=== PATIENT | female | born 1970 | race Caucasian/White ===

== ENCOUNTER 2017-10-04 09:08 | Observation (INO) | payer SELFPAY ==
[~2017-10-04] VITALS: Ht 160 cm; Wt 46.0 kg
[~2017-10-04 09:08] MED LIST: ALPR1CON PO; PROM25SU8 PO; PROT40TA PO
[2017-10-04 09:09] VITALS: BP 168/77; PULSE 70; RESP 16; TEMP 98.7; O2SAT 99
[2017-10-04 10:21] LABS: AUTOMATED NEUTROPHIL # 11.8 TH/MM3 (1.8-7.7); BASOPHIL # 0.1 TH/MM3 (0-0.2); BASOPHIL % 0.4 % (0.0-2.0); EOSINOPHIL # 0.1 TH/MM3 (0-0.4); EOSINOPHIL % 0.6 % (0.0-4.0); HEMATOCRIT 41.2 % (35.0-46.0); HEMO FLAGS DIFF FINAL; LYMPH % 11.7 % (9.0-44.0); LYMPHOCYTE # 1.7 TH/MM3 (1.0-4.8); MEAN CORPUSCULAR HEMOGLOBIN 32.1 PG (27.0-34.0); MEAN CORPUSCULAR HGB CONC 33.1 % (32.0-36.0); MONO % 4.6 % (0.0-8.0); NEUT % 82.7 % (16.0-70.0); PLATELET COUNT 276 TH/MM3 (150-450); RED BLOOD COUNT 4.24 MIL/MM3 (4.00-5.30); RED CELL DISTRIBUTION WIDTH 13.7 % (11.6-17.2); WHITE BLOOD COUNT 14.3 TH/MM3 (4.0-11.0)
[2017-10-04 10:45] VITALS: BP 98/64; PULSE 53; RESP 17; O2SAT 99
--- NOTE | 2017-10-04 10:52 | RADRPT ---
EXAM DATE/TIME: 10/04/2017 10:02 [facility] COMPARISON: No previous studies available for comparison. INDICATIONS : Chest pain. MEDICAL HISTORY : None. SURGICAL HISTORY : None. ENCOUNTER: Initial ACUITY: 1 day PAIN SCORE: 2/10 LOCATION: Bilateral chest FINDINGS: A single view of the chest demonstrates the lungs to be symmetrically aerated without evidence of mas s, infiltrate or effusion. The cardiomediastinal contours are unremarkable. Osseous structures are intact. CONCLUSION: No acute disease. Vikas Whitfield MD on October 04, 2017 at 10:49 Board Certified Radiologist. This report was verified electronically.
[2017-10-04 10:53] LABS: ANION GAP 8 MEQ/L (5-15); BICARBONATE 24.1 MEQ/L (21.0-32.0); CHLORIDE 107 MEQ/L (98-107); CREATINE KINASE 104 U/L (26-192); GLOMERULAR FILTRATION RATE 82 ML/MIN (>89); SODIUM (NA) 139 MEQ/L (136-145)
[2017-10-04 10:54] LABS: BLOOD UREA NITROGEN 10 MG/DL (7-18)
[2017-10-04 11:06] LABS: CKMB 1.6 NG/ML (0.5-3.6)
--- NOTE | 2017-10-04 11:23 | PD ---
HPI Chief Complaint: Cardiac Complaint Time Seen by Provider: 10:12 Travel History International Travel<30 days: No Contact w/Intl Traveler<30days: No Traveled to known affect area: No History of Present Illness HPI This is a 47-year-old female who presents to the emergency department with chest discomfort that started earlier this morning about 3 hours ago described as stabbing pain in the left side of her chest radiating to the left arm associated with some shortness of breath and nausea. She says she was driving in her car when the pain recurred and she started to feel confused and felt like her speech with heavy and slurred. This lasted for several minutes and then subsided. She's had chest pains before but never this bad. She has never had a stress test. She's been told she has hyperlipidemia by her doctor but she doesn't take any medication. Her father had multiple heart attacks and they think that he had his first heart attack when he was young. Her sister who was in the room says that she's had 2 "silent heart attacks" for which she did not receive stents. PFSH Past Medical History Depression: Yes High Cholesterol: Yes Diminished Hearing: No Influenza Vaccination: No ?: Not Past Surgical History Section: Yes Hysterectomy: Yes (PARTIAL) Other Surgery: Yes (LAPAROSCOPY) Social History Alcohol Use: Yes (OCCASSIONALLY) Tobacco Use: No (QUIT 3 YEARS AGO) Substance Use: Yes (MARIJUANA DAILY) Allergies-Medications (Allergen,Severity, Reaction): Coded Allergies: acetaminophen (Unverified Allergy, Severe, Nausea/Vomiting, 06/14/17) oxycodone (Unverified Allergy, Severe, Nausea/Vomiting, 06/14/17) penicillin G (Unverified Allergy, Severe, 06/14/17) propoxyphene (Unverified Allergy, Severe, Nausea/Vomiting, 06/14/17) Reported Meds & Prescriptions Reported Meds & Active Scripts Active Reported Prozac (Fluoxetine HCl) 10 Mg Cap 10 Mg PO DAILY Alprazolam 1 Mg Tab 1 Mg PO TID PRN Review of Systems Except as stated in HPI: all other systems reviewed are Neg Physical Exam Narrative GENERAL:Well appearing, no acute distress SKIN: Focused skin assessment warm and dry. HEAD: Atraumatic. Normocephalic. EYES: Pupils equal and round. No injection or drainage. ENT: Moist mucous membranes NECK: Trachea midline. CARDIOVASCULAR: Regular rate and rhythm. No murmur appreciated. RESPIRATORY: Clear to auscultation. Breath sounds equal bilaterally. GASTROINTESTINAL: Abdomen soft, non-tender, nondistended. MUSCULOSKELETAL: No obvious deformities. NEUROLOGICAL: Awake and alert. No obvious cranial nerve deficits. No upper or lower extremity drift. No ataxia. PSYCHIATRIC: Anxious appearing. Data Data Last Documented VS Vital Signs Date Time Temp Pulse Resp B/P (MAP) Pulse Ox O2 Delivery O2 Flow Rate FiO2 10/04/17 10:45 53 17 98/64 (75) 99 Room Air 10/04/17 09:09 98.7 Orders Orders Electrocardiogram (10/04/17 ) Complete Blood Count With Diff (10/04/17 09:54) Basic Metabolic Panel (Bmp) (10/04/17 09:54) Ckmb (Isoenzyme) Profile (10/04/17 09:54) Troponin I (10/04/17 09:54) Chest, Single Ap (10/04/17 09:54) Iv Access Insert/Monitor (10/04/17 09:54) Ecg Monitoring (10/04/17 09:54) Oxygen Administration (10/04/17 09:54) Oximetry (10/04/17 09:54) Ct Brain W/O Iv Contrast(Rout) (10/04/17 ) CKMB (10/04/17 10:02) CKMB% (10/04/17 10:02) Admit Order (Ed Use Only) (10/04/17 12:32) Labs Laboratory Tests Test 10/04/17 10:02 White Blood Count 14.3 TH/MM3 Red Blood Count 4.24 MIL/MM3 Hemoglobin 13.6 GM/DL Hematocrit 41.2 % Mean Corpuscular Volume 97.0 FL Mean Corpuscular Hemoglobin 32.1 PG Mean Corpuscular Hemoglobin Concent 33.1 % Red Cell Distribution Width 13.7 % Platelet Count 276 TH/MM3 Mean Platelet Volume 8.6 FL Neutrophils (%) (Auto) 82.7 % Lymphocytes (%) (Auto) 11.7 % Monocytes (%) (Auto) 4.6 % Eosinophils (%) (Auto) 0.6 % Basophils (%) (Auto) 0.4 % Neutrophils # (Auto) 11.8 TH/MM3 Lymphocytes # (Auto) 1.7 TH/MM3 Monocytes # (Auto) 0.7 TH/MM3 Eosinophils # (Auto) 0.1 TH/MM3 Basophils # (Auto) 0.1 TH/MM3 CBC Comment DIFF FINAL Differential Comment Blood Urea Nitrogen 10 MG/DL Creatinine 0.75 MG/DL Random Glucose 103 MG/DL Calcium Level 8.9 MG/DL Sodium Level 139 MEQ/L Potassium Level 4.0 MEQ/L Chloride Level 107 MEQ/L Carbon Dioxide Level 24.1 MEQ/L Anion Gap 8 MEQ/L Estimat Glomerular Filtration Rate 82 ML/MIN Total Creatine Kinase 104 U/L Creatine Kinase MB 1.6 NG/ML Troponin I LESS THAN 0.02 NG/ML MDM Medical Decision Making Medical Screen Exam Complete: Yes Emergency Medical Condition: Yes Interpretation(s) Afebrile, no tachycardia, hypertensive Leukocytosis Electrolytes are reassuring Troponin is normal Chest x-rays reassuring CT head: No intracranial hemorrhage Differential Diagnosis Acute coronary syndrome, costochondritis, pulmonary embolism, anxiety, TIA, stroke, aortic dissection Narrative Course This is a 47-year-old female who presents to the emergency department with chest discomfort that is intermittent and started this morning associated with some numbness in her left arm and some speech difficulty that lasted for several minutes and then subsided. She is placed in a monitor and an IV was established. EKG is nonischemic. Labs are obtained which are reassuring and CT of the head is unremarkable. I very low suspicion that this is a TIA or stroke because it wouldn't fit with her chest pain. Her risk profile is low and she can likely follow-up from a neurologic perspective as an outpatient. She doesn't have any risk factors for aortic dissection. If anything I think we need to rule out acute coronary syndrome in this patient given her family history, although my suspicion is that her presentation is related to anxiety. Patient will be placed in observation and serial cardiac enzymes will be obtained as well as risk stratification. Physician Communication Physician Communication Discussed with Dr. Simmons Diagnosis Primary Impression: Atypical chest pain Admitting Information Admitting Physician Requests: Observation Amanda Hamlin MD Oct 04, 2017 11:23
--- NOTE | 2017-10-04 11:30 | RADRPT ---
EXAM DATE/TIME: 10/04/2017 11:13 [facility] COMPARISON: CT BRAIN W/O CONTRAST, July 02, 2010, 23:09. INDICATIONS : Syncopal episode. RADIATION DOSE: 29.29 CTDIvol (mGy) MEDICAL HISTORY : None SURGICAL HISTORY : Hysterectomy. ENCOUNTER: Initial ACUITY: 1 day PAIN SCALE: 0/10 LOCATION: chest TECHNIQUE: Multiple contiguous axial images were obtained of the head. Using automated exposure control and adjustment of the mA and/or kV according to patient size, radiation dose was kept as low as reasonably achievable to obtain optimal diagnostic quality images. DICOM format image data is av ailable electronically for review and comparison. FINDINGS: CEREBRUM: The ventricles are normal for age. No evidence of midline shift, mass lesion, hemorrha ge or acute infarction. No extra-axial fluid collections are seen. POSTERIOR FOSSA: The cerebellum and brainstem are intact. The 4th ventricle is midline. The cer ebellopontine angle is unremarkable. EXTRACRANIAL: The visualized portion of the orbits is intact. SKULL: The calvaria is intact. No evidence of skull fracture. CONCLUSION: Negative for an acute process. Dipak Marcial MD FACR on October 04, 2017 at 11:27 Board Certified Radiologist. This report was verified electronically.
[2017-10-04] MEDS ORDERED: IOHEXOL 350 MG/ML 10 ML VIAL (for RAD DIAG) IVCONTRAST ONE (12:34)
[2017-10-04 12:42] VITALS: BP 110/61; PULSE 68; RESP 19; O2SAT 100
[2017-10-04] MEDS ORDERED: ALPR1TAB3 PO (12:45)
[2017-10-04] MEDS ORDERED: FLUO-1 PO (12:45)
[2017-10-04] MEDS ORDERED: ALPRAZolam 1 MG TAB PO PRN (15:45)
[2017-10-04] MEDS: ASPIRIN EC 325 MG TABEC PO SCH (15:45)
[2017-10-04] MEDS ORDERED: ALPRAZolam 0.5 MG TAB PO PRN (15:45)
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
--- NOTE | 2017-10-04 16:31 | RADRPT ---
EXAM DATE/TIME: 10/04/2017 15:58 [facility] COMPARISON: No previous studies available for comparison. INDICATIONS : Transient ischemic attack. MEDICAL HISTORY : Hypercholesterolemia. Depression. Anxiety. SURGICAL HISTORY : Hysterectomy. section. Laparoscopy. ENCOUNTER: Initial ACUITY: 1 day PAIN SCORE: 0/10 LOCATION: Bilateral neck PEAK SYSTOLIC VELOCITIES (cm/sec): ICA/CCA RATIO: Right: 1.0 Left: 1.0 ICA: Right: 114.0 Left: 122.1 CCA: Right: 117.3 Left: 123.7 ECA: Right: 96.3 Left: 80.1 VERTEBRAL: Right: 69.4 antegrade Left: 61.6 antegrade Elevated flow velocities and ICA/CCA ratios have been found to correlate with increased degrees of vessel stenosis, calculated as percentage of diameter relative to a normal segment of distal ICA/CCA FINDINGS: Ultrasound of the carotid arteries was performed bilaterally using real-time Doppler and color Dopple r imaging. Examination of the right carotid artery demonstrates no significant plaque within the bifurcation. No waveform abnormalities are identified and no spectral broadening is seen. Examination of the left carotid artery demonstrates mild fibrous plaque within the bulb. No waveform abnormalities are identified and no spectral broadening is seen. There is antegrade flow in both vertebral arteries. CONCLUSION: 1. No evidence of hemodynamically significant lesion. Kal Agee MD on October 04, 2017 at 16:28 Board Certified Radiologist. This report was verified electronically.
[2017-10-04 17:29] VITALS: BP 134/61; PULSE 58; RESP 20; TEMP 98.6; O2SAT 99
[2017-10-04 17:30] LABS: BLOOD, URINE NEG (NEG); COMMENT (UR) CULT NOT INDICATED; CULTURE IF INDICATED CULT NOT INDICATED; GLUCOSE,URINE NEG (NEG); KETONE, URINE TRACE mg/dL (NEG); NITRITE,URINE NEG (NEG); PH, URINE 7.5 (5.0-8.5); SQUAMOUS EPITHELIAL CELL URINE 1 /hpf (0-5); URINE COLOR LIGHT-YELLOW (YELLW/STRAW)
[2017-10-04 20:26] VITALS: BP 113/59; PULSE 59; RESP 16; TEMP 98.3; O2SAT 98
[2017-10-04] MEDS ORDERED: DIATRIZOATE MEGLUM/DIATRIZOATE SOD 9 ML CUP PO ONE (21:00)
--- NOTE | 2017-10-04 22:28 | EKG ---
Date Performed: 10/04/2017 Time Performed: 09:21:35 PTAGE: 47 years EKG: Sinus rhythm NORMAL ECG NO PREVIOUS TRACING DOCTOR: Ketan Bolanos Interpretating Date/Time 10/04/2017 22:27:46
[2017-10-05] VITALS (9 sets, daily range): BP systolic 116–154; BP diastolic 59–71; PULSE 52–65; RESP 16–18; TEMP 97.9–98.7; O2SAT 96–99
--- NOTE | 2017-10-05 03:42 | RADRPT ---
EXAM DATE/TIME: 10/05/2017 02:59 [facility] COMPARISON: No previous studies available for comparison. INDICATIONS : Abdomen pain. IV CONTRAST: 75 cc Omnipaque 350 (iohexol) IV ORAL CONTRAST: Prescribed oral contrast ingested. RADIATION DOSE: 4.51 CTDIvol (mGy) MEDICAL HISTORY : None SURGICAL HISTORY : Hysterectomy. ENCOUNTER: Initial ACUITY: 1 day PAIN SCALE: 5/10 LOCATION: Bilateral abdomen TECHNIQUE: Volumetric scanning of the abdomen and pelvis was performed. Using automated exposure control and ad justment of the mA and/or kV according to patient size, radiation dose was kept as low as reasonably achievable to obtain optimal diagnostic quality images. DICOM format image data is available electro nically for review and comparison. FINDINGS: LOWER LUNGS: The visualized lower lungs are clear. LIVER: Homogeneous density without lesion. There is no dilation of the biliary tree. No calcified gallston es. SPLEEN: Normal size without lesion. PANCREAS: Within normal limits. KIDNEYS: Normal in size and shape. There is no mass, stone or hydronephrosis. ADRENAL GLANDS: Within normal limits. VASCULAR: There is no aortic aneurysm. BOWEL/MESENTERY: The stomach, small bowel, and colon demonstrate no acute abnormality. There is no free intraperitone al air or fluid. There is a normal appendix. ABDOMINAL WALL: Within normal limits. RETROPERITONEUM: There is no lymphadenopathy. BLADDER: No wall thickening or mass. At the upper limits of normal in size for REPRODUCTIVE: Within normal limits. INGUINAL: There is no lymphadenopathy or hernia. MUSCULOSKELETAL: Within normal limits for patient age. CONCLUSION: 1. The urinary bladder is at the upper limits of normal in size. 2. The study is otherwise unremarkable. Silvio Dumont MD on October 05, 2017 at 3:38 Board Certified Radiologist. This report was verified electronically.
[2017-10-05] MEDS ORDERED: SODIUM CHLORIDE 0.9% FLUSH 10 ML FLUSH IV FLUSH PRN (08:30)
[2017-10-05] MEDS ORDERED: DEXTROSE 50% IN WATER 50 ML VIAL(D50) IV PUSH PRN (08:30)
[2017-10-05] MEDS ORDERED: GLUCAGON 1 MG/ML VIAL OTHER PRN (08:30)
[2017-10-05] MEDS ORDERED: ASPIRIN 81 MG CHEW TAB PO SCH (09:00)
--- NOTE | 2017-10-05 09:06 | MB ---
cc: SHELBY CLARK M.D. DATE OF CONSULTATION: 10/05/2017 REASON FOR CONSULTATION TIA. HISTORY OF PRESENT ILLNESS Ms. Mix is a 47-year-old female who has been having intermittent headaches recently, yesterday was driving and suddenly developed chest pain and then a tightness in the left-side of her jaw. She became very anxious and states she developed some slurring of speech for a very brief period of time. She did have a headache as well, which was a diffuse headache. Her symptoms resolved. She had no focal weakness or numbness. She did not have any palpitations. She was very anxious. PAST MEDICAL HISTORY 1. History of laparoscopy. 2. History of weight loss. 3. Anxiety. 4. Depression. MEDICATIONS She is on: 1. Prozac. 2. Xanax. ALLERGIES ACETAMINOPHEN, OXYCODONE, PENICILLIN, PROPOXYPHENE. NEUROLOGIC EXAMINATION VITAL SIGNS: Blood pressure is 143/61, pulse 52, respirations 16, temperature 98 degrees. Higher cortical functions are normal. Cranial nerves II-XII are normal. Motor exam is normal. Normal strength and tone. There is no drift. Reflexes are symmetric. Sensory exam is intact. CT of the brain is normal. Carotid ultrasound is normal. LABORATORY DATA White count 14,300. Hemoglobin 13.6, hematocrit 41%, platelet count 276,000. Sodium is 139, potassium 4, chloride 107, CO2 24, BUN is 10, creatinine 0.75, GFR is 82, CPK is 104. Troponin less than 0.02. Tox screen positive for benzodiazepines and cannabis. Urinalysis pH 7.5, specific gravity 1.15. EKG Shows sinus rhythm. IMPRESSION Episode of chest pain with slurred speech. I doubt TIA given the lack of any other neurologic symptoms, suggests this may have been anxiety related, causing the slurred speech. RECOMMENDATIONS I would like to get an MRI of the brain as well as an echocardiogram. Start low-dose aspirin 81 mg daily. Recommend cardiology evaluation for chest pain. MD BRISA Trevino/TLL /8:28 AM /8:52 AM
--- NOTE | 2017-10-05 09:16 | HHI.PR ---
Subjective Remarks The patient was in a wheelchair, about to be wheeled down to [facility]. She said that she has not had any palpitations since yesterday. She says she has had weight loss of around 25 pounds this past year. She says every time she eats she has a bowel movement. She has chronic abdominal pains. She does have an outpatient psychiatrist but has not seen him in about 3 years. Discussed with nursing. Objective Vitals Vital Signs Date Time Temp Pulse Resp B/P (MAP) Pulse Ox O2 Delivery O2 Flow Rate FiO2 10/05/17 07:27 98.1 52 16 143/61 (88) 98 10/05/17 04:16 98.4 59 16 119/59 (79) 99 10/05/17 00:26 98.0 59 16 116/71 (86) 99 10/04/17 20:26 98.3 59 16 113/59 (77) 98 10/04/17 17:29 98.6 58 20 134/61 (85) 99 10/04/17 12:42 68 19 110/61 (77) 100 Room Air 10/04/17 10:45 53 17 98/64 (75) 99 Room Air 10/04/17 09:20 Room Air Result Diagram: 10/04/17 1002 10/04/17 1002 Imaging Last Impressions Chest X-Ray 10/04/17 0954 Signed Impressions: Service Date/Time: Wednesday, October 04, 2017 10:02 - CONCLUSION: No acute disease. Vikas Whitfield MD Head CT 10/04/17 0000 Signed Impressions: Service Date/Time: Wednesday, October 04, 2017 11:13 - CONCLUSION: Negative for an acute process. Dipak Marcial MD FACR Carotid Artery Ultrasound 10/04/17 0000 Signed Impressions: Service Date/Time: Wednesday, October 04, 2017 15:58 - CONCLUSION: 1. No evidence of hemodynamically significant lesion. Kal Agee MD Abdomen/Pelvis CT 10/04/17 0000 Signed Impressions: Service Date/Time: Thursday, October 05, 2017 02:59 - CONCLUSION: 1. The urinary bladder is at the upper limits of normal in size. 2. The study is otherwise unremarkable. Silvio Dumont MD Objective Remarks GENERAL: In no apparent distress. SKIN: No rashes, ecchymoses or lesions. Cool and dry. HEAD: Atraumatic. Normocephalic. No temporal or scalp tenderness. EYES: Pupils equal round and reactive. Extraocular motions intact. No scleral icterus. No injection or drainage. ENT: Nose without bleeding, purulent drainage or septal hematoma. Throat without erythema, tonsillar hypertrophy or exudate. Uvula midline. Airway patent. NECK: Trachea midline. No JVD or lymphadenopathy. Supple, nontender, no meningeal signs. CARDIOVASCULAR: Bradycardic without murmurs, gallops, or rubs. RESPIRATORY: Clear to auscultation. Breath sounds equal bilaterally. No wheezes , rales, or rhonchi. GASTROINTESTINAL: Mild generalized tenderness on exam. MUSCULOSKELETAL: Extremities without clubbing, cyanosis, or edema. No joint tenderness, effusion, or edema noted. NEUROLOGICAL: Awake and alert. Cranial nerves II through XII intact. Motor and sensory grossly within normal limits. Five out of 5 muscle strength in all muscle groups. Normal speech. PSYCH: Slightly anxious. Medications and IVs Current Medications Medications (Trade) Dose Ordered Sig/Guille Route Start Time Stop Time Status Last Admin (PROzac) 10 mg DAILY PO 10/05/17 09:00 (Ecotrin Ec) 325 mg DAILY PO 10/04/17 15:45 10/04/17 15:45 (Xanax) 0.5 mg Q8H PRN PO 10/04/17 15:45 10/04/17 18:38 (NS Flush) 2 ml BID IV FLUSH 10/05/17 09:00 (NS Flush) 2 ml UNSCH PRN IV FLUSH 10/05/17 08:30 (NovoLOG SUPPLEMENTAL SCALE) 1 ACHS SQ 10/05/17 12:00 (D50w (Vial) Inj) 50 ml UNSCH PRN IV PUSH 10/05/17 08:30 (Glucagon Inj) 1 mg UNSCH PRN OTHER 10/05/17 08:30 A/P Assessment and Plan Palpitations Likely secondary to anxiety. Trops negative x 3. EKG with normal sinus rhythm. Symptoms have resolved. - telemetry. - anxiety control. - stress test has been ordered. Anxiety disorder/ Panic attacks Psychiatry consult appreciated. - Continue on Xanax every 8 when necessary. - Continue Prozac. Would benefit from starting Elavil as an outpt. Transient left-sided tingling/ numbness Possible TIA vs panic attack. Neurology consult appreciated. Head CT negative. - Start aspirin. - Check an echo and MRI of brain. Chronic diarrhea/ Weight loss/ Abdominal pain Ongoing for past year. CT scan unremarkable. - GI consult requested. Substance abuse The pt endorses use of alcohol and MJ. Counseled. - [facility] protocol. - CM consult. Leukocytosis CXR and UA unremarkable. Afebrile. Possibly a stress reaction. - follow CBC. PPx: TEDs/SCDs.early ambulation Discharge Planning Awaiting GI Silvio Quesada DO Oct 05, 2017 09:16
[2017-10-05] MEDS ORDERED: REGADENOSON INJ 0.4 MG/5 ML SYR ONE (10:04)
[2017-10-05] MEDS: INSULIN ASPART SUPPLEMENTAL SCALE SQ SCH ×3 (12:00→20:43)
--- NOTE | 2017-10-05 12:25 | PD.PSY.CON ---
Provisional Diagnosis Admission Date Oct 04, 2017 at 12:33 Holt I. Unspecified anxiety, history of depression Holt II. Deferred History of Present Illness Service Psychiatry Consult Requested By Medical team Reason for Consult anxiety Primary Care Physician Stef Nichols MD HPI The patient is a 47 year-old woman, domiciled with her El[place] , employed, with psychiatric history of depression and anxiety, cannabis disorder no previous psychiatric hospitalizations, no previous suicidal attempts , the patient is in process at 10 mg and Xanax 0.5 mg 3 times a day, prescribed by PCP, who came to the hospital complaining of chest pain and nausea. She has been workup for chest pain. Trops negative x 3. EKG with normal sinus rhythm. Symptoms have resolved. Patient was consulted to psychiatry for potential anxiety as a source of chest pain. On psychiatric evaluation patient is calm, cooperative and pleasant. The patient reports good mood, she says that she feels much better now. The patient denies symptomatology of anxiety and depression, she denies recent trauma, patient says that she has been dealing with abdominal and chest pain for some months now after she had surgery about a year ago. Patient says that she does not think that her pain is related with anxiety, but she expressed understanding stating "everything is possible". Patient says that her anxiety and depression has been stable in her current psychotropic regimen prescribed by PCP. She denies suicidal and homicidal ideation, she denies visual and auditory hallucinations. No paranoia, no delusions, no obsessions, no hypervigilance are reported. She reports daily use of cannabis, but denies the use of other illicit drugs and alcohol. Review of Systems Constitutional: DENIES: Diaphoretic episodes, Fatigue, Fever, Weight gain, Weight loss, Chills, Dizziness, Change in appetite, Night Sweats Endocrine: DENIES: Abnorml menstrual pattern, Heat/cold intolerance, Polydipsia , Polyuria, Polyphagia Eyes: DENIES: Blurred vision, Diplopia, Eye inflammation, Eye pain, Vision loss , Photosensitivity, Double Vision Ears, nose, mouth, throat: DENIES: Tinnitus, Hearing loss, Vertigo, Nasal discharge, Oral lesions, Throat pain, Hoarseness, Ear Pain, Running Nose, Epistaxis, Sinus Pain, Toothache, Odynophagia Respiratory: DENIES: Apneas, Cough, Snoring, Wheezing, Hemoptysis, Sputum production, Shortness of breath Cardiovascular: DENIES: Chest pain, Palpitations, Syncope, Dyspnea on Exertion , PND, Lower Extremity Edema, Orthopnea, Claudication Gastrointestinal: DENIES: Abdominal pain, Black stools, Bloody stools, Constipation, Diarrhea, Nausea, Vomiting, Difficulty Swallowing, Anorexia Genitourinary: DENIES: Abnormal vaginal bleeding, Dysmenorrhea, Dyspareunia, Sexual dysfunction, Urinary frequency, Urinary incontinence, Urgency, Hematuria , Dysuria, Nocturia, Vaginal discharge Musculoskeletal: DENIES: Joint pain, Muscle aches, Stiffness, Joint Swelling, Back pain, Neck pain Integumentary: DENIES: Abnormal pigmentation, Pruritus, Rash, Nail changes, Breast masses, Breast skin changes, Nipple discharge Hematologic/lymphatic: DENIES: Bruising, Lymphadenopathy Immunologic/allergic: DENIES: Eczema, Urticaria Neurologic: DENIES: Abnormal gait, Headache, Localized weakness, Paresthesias, Seizures, Speech Problems, Tremor, Poor Balance Psychiatric: DENIES: Anxiety, Confusion, Mood changes, Depression, Hallucinations, Agitation, Suicidal Ideation, Homicidal Ideation, Delusions Past Family Social History Coded Allergies: acetaminophen (Unverified Allergy, Severe, Nausea/Vomiting, 06/14/17) oxycodone (Unverified Allergy, Severe, Nausea/Vomiting, 06/14/17) penicillin G (Unverified Allergy, Severe, 06/14/17) propoxyphene (Unverified Allergy, Severe, Nausea/Vomiting, 06/14/17) Reported Medications Fluoxetine (Prozac) 10 Mg Cap, 10 MG PO DAILY, #30 CAP 0 Refills 10/04/17 Alprazolam (Alprazolam) 1 Mg Tab, 1 MG PO TID Y for ANXIETY, TAB 0 Refills 10/04/17 Current Medications Medications (Trade) Dose Ordered Sig/Guille Route Start Time Stop Time Status Last Admin (PROzac) 10 mg DAILY PO 10/05/17 09:00 (Ecotrin Ec) 325 mg DAILY PO 10/04/17 15:45 10/04/17 15:45 (Xanax) 0.5 mg Q8H PRN PO 10/04/17 15:45 10/04/17 18:38 (NS Flush) 2 ml BID IV FLUSH 10/05/17 09:00 (NS Flush) 2 ml UNSCH PRN IV FLUSH 10/05/17 08:30 (NovoLOG SUPPLEMENTAL SCALE) 1 ACHS SQ 10/05/17 12:00 (D50w (Vial) Inj) 50 ml UNSCH PRN IV PUSH 10/05/17 08:30 (Glucagon Inj) 1 mg UNSCH PRN OTHER 10/05/17 08:30 Family Psych History Patient denies family psychiatric history Social History She was born and raised in [place], she lives with her in [facility], she works in a nursery, her highest level of education is some college Patient's Strengths (min. 2) Family support Physical Exam No EPS, no withdrawal, no psychomotor retardation or agitation Vital Signs Vital Signs Date Time Temp Pulse Resp B/P (MAP) Pulse Ox O2 Delivery O2 Flow Rate FiO2 10/05/17 08:09 64 10/05/17 07:27 98.1 16 143/61 (88) 98 10/04/17 12:42 Room Air Lab Results Test 10/04/17 16:30 10/04/17 16:55 10/05/17 01:30 Urine Color LIGHT-YELLOW Urine Turbidity HAZY Urine pH 7.5 Urine Specific [place] 1.015 Urine Protein NEG mg/dL Urine Glucose (UA) NEG mg/dL Urine Ketones TRACE mg/dL Urine Occult Blood NEG Urine Nitrite NEG Urine Bilirubin NEG Urine Urobilinogen LESS THAN 2.0 MG/DL Urine Leukocyte Esterase NEG Urine RBC 3 /hpf Urine WBC LESS THAN 1 /hpf Urine Squamous Epithelial Cells 1 /hpf Urine Amorphous Sediment RARE Microscopic Urinalysis Comment CULT NOT INDICATED Urine Opiates Screen NEG Urine Barbiturates Screen NEG Urine Amphetamines Screen NEG Urine Benzodiazepines Screen POS Urine Cocaine Screen NEG Urine Cannabinoids Screen POS Troponin I LESS THAN 0.02 NG/ML LESS THAN 0.02 NG/ML Mental Status Examination Appearance: Appropriate Consciousness: Alert Orientation: x4 Motor Activity: Normal gait Speech: Unremarkable Language: Adequate Fund of Knowledge: Adequate Attention and Concentration: Adequate Memory: Unremarkable Mood: Appropriate Affect: Appropriate Thought Process & Associations: Intact Thought Content: Appropriate Hallucination Type: None Delusion Type: None Suicidal Ideation: No Suicidal Plan: No Suicidal Intention: No Homicidal Ideation: No Homicidal Plan: No Homicidal Intention: No Insight: Adequate Judgment: Adequate Assessment & Plan Problem List: (1) Anxiety disorder, unspecified ICD Codes: F41.9 - Anxiety disorder, unspecified Assessment & Plan: On psychiatric evaluation the patient denies symptomatology of depression, anxiety, esperanza and psychosis. Patient denies suicidal and homicidal ideation, she denies visual and auditory hallucinations. At this moment is unclear if the somatic symptoms of the patient are related with anxiety. However, since the patient has been having continues his stomach pain and diarrhea, a TCI rather than a SSRI would be more convenient for 3 depression and anxiety. I have recommended to the patient to discuss this issue with her outpatient psychiatrist. Psychoeducation, supportive psychotherapy and motivation provided. Continue current psychotropics. Patient does not meet criteria for involuntary admission. Assessment & Plan Estimated LOS: Santos Moses MD Oct 05, 2017 12:25
[2017-10-05] MEDS: SODIUM CHLORIDE 0.9% FLUSH 10 ML FLUSH IV FLUSH SCH ×2 (12:34→20:42)
[2017-10-05] MEDS: ASPIRIN EC 325 MG TABEC PO SCH (12:35)
[2017-10-05] MEDS: FLUoxetine HCL 10 MG CAP PO SCH (12:35)
--- NOTE | 2017-10-05 13:08 | RADRPT ---
EXAM DATE/TIME: 10/05/2017 09:58 [facility] COMPARISON: No previous studies available for comparison. INDICATIONS : Chest pain with anxiety. Angina. DOSE: 25.1 mCi Tc99m Myoview at stress. 8.4 mCi Tc99m Myoview at rest. 0.4 mg Lexiscan STRESS SYMPTOMS: Shortness of breath with a headache. EJECTION FRACTION: 63% MEDICAL HISTORY : Marijuanana use daily. SURGICAL HISTORY : Hysterectomy. section. ENCOUNTER: Initial ACUITY: 1 day PAIN SCALE: 2/10 LOCATION: Bilateral chest discomfort TECHNIQUE: The patient underwent pharmacologic stress with infusion of prescribed dose. Continuous ECG tracing was monitored during stress. Gated SPECT imaging was performed after stress and conventional SPECT i maging was performed at rest. The examination was performed on a SPECT/CT scanner, both attenuation and non-corrected datasets were reviewed. FINDINGS: DISTRIBUTION: The maximum perfused segment at stress is in the anterior wall. PERFUSION STUDY: The pattern of perfusion at stress is within normal limits. GATED STUDY: There is intact wall motion and thickening without hypokinetic or dyskinetic segments. CONCLUSION: Normal myocardial perfusion scan. No evidence of stress-induced or fixed perfusion abnormalities. RISK CATEGORY: Low (<1% Annual Mortality Rate) Vikas Whitfield MD on October 05, 2017 at 13:05 Board Certified Radiologist. This report was verified electronically.
--- NOTE | 2017-10-05 13:09 | RADRPT ---
EXAM DATE/TIME: 10/05/2017 11:32 [facility] COMPARISON: No previous studies available for comparison. INDICATIONS : CVA. Numbness and tingling. MEDICAL HISTORY : None. SURGICAL HISTORY : Hysterectomy. section. Laparoscopy ENCOUNTER: Initial ACUITY: 1 day PAIN SCORE: 0/10 LOCATION: cranial Please note a normal MRA of the brain does not entirely exclude the possibility of a small aneurysm, nor the possibility of distal intracranial vessel disease. TECHNIQUE: 3D time of flight MRA was performed. Source images, multiplanar STS MIP, and 3D volume MIP reconstru ctions were reviewed. FINDINGS: There is excellent visualization of the major intracranial arteries out to the second-order branch ve ssels. There is no evidence for aneurysm, vessel truncation or stenosis, and no evidence for vascula r malformation. CONCLUSION: 1. Unremarkable MR angiography of the brain. Kal Agee MD on October 05, 2017 at 13:04 Board Certified Radiologist. This report was verified electronically.
[2017-10-05 13:28] LABS: AUTOMATED NEUTROPHIL # 5.9 TH/MM3 (1.8-7.7); BASOPHIL # 0.1 TH/MM3 (0-0.2); BASOPHIL % 0.8 % (0.0-2.0); EOSINOPHIL # 0.1 TH/MM3 (0-0.4); EOSINOPHIL % 0.9 % (0.0-4.0); HEMATOCRIT 42.1 % (35.0-46.0); HEMO FLAGS DIFF FINAL; LYMPH % 18.9 % (9.0-44.0); LYMPHOCYTE # 1.5 TH/MM3 (1.0-4.8); MEAN CELL VOLUME 96.1 FL (80.0-100.0); MEAN CORPUSCULAR HEMOGLOBIN 31.9 PG (27.0-34.0); MEAN CORPUSCULAR HGB CONC 33.2 % (32.0-36.0); MONO % 7.2 % (0.0-8.0); NEUT % 72.2 % (16.0-70.0); PLATELET COUNT 307 TH/MM3 (150-450); RED BLOOD COUNT 4.38 MIL/MM3 (4.00-5.30); RED CELL DISTRIBUTION WIDTH 13.5 % (11.6-17.2); WHITE BLOOD COUNT 8.2 TH/MM3 (4.0-11.0)
--- NOTE | 2017-10-05 14:22 | RADRPT ---
EXAM DATE/TIME: 10/05/2017 11:32 [facility] COMPARISON: No previous studies available for comparison. INDICATIONS : CVA. Numbness and tingling. MEDICAL HISTORY : None. SURGICAL HISTORY : Hysterectomy. section. Laparoscopy ENCOUNTER: Initial ACUITY: 1 day PAIN SCORE: 0/10 LOCATION: cranial TECHNIQUE: Multiplanar, multisequence MRI of the brain was performed without contrast. FINDINGS: MRI of the brain is performed in sagittal, axial and coronal planes. The craniocervical junction and midline structures are unremarkable. Diffusion weighted images demonstrate no abnormality. There is n o evidence of acute cortical infarction, acute hemorrhage, mass effect or midline shift is seen. Post erior fossa structures are unremarkable. CONCLUSION: 1. No evidence of acute intracranial pathology. No masses are identified. Kal Agee MD on October 05, 2017 at 14:18 Board Certified Radiologist. This report was verified electronically.
--- NOTE | 2017-10-05 14:44 | PD.CONS ---
HPI History of Present Illness This is a 47 year old who presented to the emergency department for evaluation of chest pain that began yesterday morning and has since resolved. GI was consulted due to patients chronic complaints of diarrhea, she states she normally has one episode of day. Denies fecal urgency or incontinence. She reports sometimes the food is undigested, she is unsure if there has been blood in the stool. Has not tried any OTC relief for the diarrhea. Nausea yesterday morning, but denies nausea or vomiting at home. Pt reports abdominal pain worsening over the past few months, originally began in her periumbilical area and is now diffuse throughout her abdomen. Pain is worse before having BMs, improves after having BM. Mild abdominal cramping. She reports 25 pound weight loss over the past year. Denies any known acid reflux or heartburn but states she was told that the episode of chest pain she was having that brought her into the ER might be related. Pt has never had EGD or colonoscopy. Family history of colon cancer, maternal grandmother. Denies family history of Crohns, UC, celiac disease. Quit smoking 3 years ago. Denies alcohol intake. Denies chronic NSAID use. (Yadi Fernandez) PFSH Past Medical History Anxiety disorder history of adhesiolysis Past Surgical History Laparoscopic surgery in 2016 questionable adhesion lysis per patient remove scarred tissues. Partial hysterectomy. (Yadi Fernandez) Coded Allergies: acetaminophen (Unverified Allergy, Severe, Nausea/Vomiting, 06/14/17) oxycodone (Unverified Allergy, Severe, Nausea/Vomiting, 06/14/17) penicillin G (Unverified Allergy, Severe, 06/14/17) propoxyphene (Unverified Allergy, Severe, Nausea/Vomiting, 06/14/17) Family History Father with history of CAD Maternal grandmother- Colon cancer Mother- leukemia, Social History Smoker quit 3 years ago History of alcohol use quit drinking 9 years ago but admits to occasional alcohol use and used marijuana last night (Yadi Fernandez) Review of Systems Constitutional: COMPLAINS OF: Weight loss, Dizziness, Change in appetite Gastrointestinal: COMPLAINS OF: Abdominal pain, Diarrhea, Nausea, DENIES: Black stools, Vomiting, Difficulty Swallowing, Odynophagia, Swelling of Abdomen , Heartburn, Hematemesis (Yadi Fernandez) GI Exam Vitals I&O Vital Signs Date Time Temp Pulse Resp B/P (MAP) Pulse Ox O2 Delivery O2 Flow Rate FiO2 10/05/17 12:18 98.6 55 18 154/70 (98) 99 10/05/17 08:09 64 10/05/17 07:27 98.1 52 16 143/61 (88) 98 10/05/17 04:16 98.4 59 16 119/59 (79) 99 10/05/17 00:26 98.0 59 16 116/71 (86) 99 10/04/17 20:26 98.3 59 16 113/59 (77) 98 10/04/17 17:29 98.6 58 20 134/61 (85) 99 Laboratory Test 10/04/17 16:30 10/04/17 16:55 10/05/17 01:30 10/05/17 12:45 Urine Color LIGHT-YELLOW Urine Turbidity HAZY Urine pH 7.5 Urine Specific [place] 1.015 Urine Protein NEG mg/dL Urine Glucose (UA) NEG mg/dL Urine Ketones TRACE mg/dL Urine Occult Blood NEG Urine Nitrite NEG Urine Bilirubin NEG Urine Urobilinogen LESS THAN 2.0 MG/DL Urine Leukocyte Esterase NEG Urine RBC 3 /hpf Urine WBC LESS THAN 1 /hpf Urine Squamous Epithelial Cells 1 /hpf Urine Amorphous Sediment RARE Microscopic Urinalysis Comment CULT NOT INDICATED Urine Opiates Screen NEG Urine Barbiturates Screen NEG Urine Amphetamines Screen NEG Urine Benzodiazepines Screen POS Urine Cocaine Screen NEG Urine Cannabinoids Screen POS Troponin I LESS THAN 0.02 NG/ML LESS THAN 0.02 NG/ML White Blood Count 8.2 TH/MM3 Red Blood Count 4.38 MIL/MM3 Hemoglobin 14.0 GM/DL Hematocrit 42.1 % Mean Corpuscular Volume 96.1 FL Mean Corpuscular Hemoglobin 31.9 PG Mean Corpuscular Hemoglobin Concent 33.2 % Red Cell Distribution Width 13.5 % Platelet Count 307 TH/MM3 Mean Platelet Volume 8.3 FL Neutrophils (%) (Auto) 72.2 % Lymphocytes (%) (Auto) 18.9 % Monocytes (%) (Auto) 7.2 % Eosinophils (%) (Auto) 0.9 % Basophils (%) (Auto) 0.8 % Neutrophils # (Auto) 5.9 TH/MM3 Lymphocytes # (Auto) 1.5 TH/MM3 Monocytes # (Auto) 0.6 TH/MM3 Eosinophils # (Auto) 0.1 TH/MM3 Basophils # (Auto) 0.1 TH/MM3 CBC Comment DIFF FINAL Differential Comment Physical Examination HEENT: Pupils round and reactive to light; normocephalic; atraumatic; no jaundice. Throat is clear. NECK: Neck is supple, no JVD, no lymphadenopathy. CHEST: Chest is clear to auscultation and percussion. CARDIAC: Regular rate and rhythm with no murmur gallop or rubs. ABDOMEN: Soft, nondistended, nontender; no hepatosplenomegaly; bowel sounds are present in all four quadrants. EXTREMITIES: No clubbing, cyanosis, or edema. SKIN: Normal; no rash; no jaundice. SALES COMMISSIONS ANALYST: No focal deficits; alert and oriented times three. (Yadi Fernandez) Assessment and Plan Plan Assessment: Diarrhea- Approx one episode a day, sometimes undigested food, unsure if there is blood in stool. Associated abdominal cramping. Denies urgency or incontinence. Never had EGD/ colon. Stool studies. Epigastric burning- denies acid reflux or heartburn but came to the ER with complaints of chest pain- was told it may be related to acid reflux. PPI. Weight loss- approx 25 pounds over the past year. Decreased appetite. Abdominal pain- chronic, originally started in periumbilical area, now diffuse throughout abdomen. CT abdomen/pelvis W IV contrast (10/05) --> The urinary bladder is at the upper limits of normal in size, otherwise unremarkable. Will plan for EGD/colon tomorrow. Plan: EGD/colonoscopy tomorrow Obtain consents Clear liquid diet now NPO after MN GoLytely prep today PPI Further recommendations to follow based on results of above Pt seen and examined by myself and Dr. Dobson and this note is written on his behalf (Yadi Fernandez) Physician Comments Seen and examined with [facility], egd/colonoscopy planned for tomorrow. Discussed withthe patient. Thank you (Tameka Aguilar MD) Yadi Fernandez Oct 05, 2017 14:44 Tameka Aguilar MD Oct 05, 2017 17:05
[2017-10-05] MEDS ORDERED: PEG (High)/E-LYTE SOLN 4000 ML BTL PO ONE (15:00)
[2017-10-05 17:55] LABS: HEMOGLOBIN A1a 1.2 %; HEMOGLOBIN A1b 0.8 %; HEMOGLOBIN Ao 85.2 %; HEMOGLOBIN LA1C 2.4 %; HEMOGLOBIN P3 3.6 %
[2017-10-05 18:20] LABS: C. DIFF EPI 027 PRESUMPTIVE NEGATIVE (NEGATIVE)
[2017-10-06] MEDS ORDERED: LACTATED RINGER'S 1000 ML IV PRN (01:15)
[2017-10-06] MEDS ORDERED: POVIDONE IODINE 5% (ANTISEPSIS KIT) 4 APPLICATIONS EACH NARE PRN (01:15)
[2017-10-06] MEDS ORDERED: SODIUM CHLORID 0.9% 500 ML IV PRN (01:15)
[2017-10-06] MEDS ORDERED: METOPROLOL TARTRATE 25 MG TAB PO PRN (01:15)
[2017-10-06] MEDS ORDERED: INSULIN HUMAN REGULAR 1,000 UNITS/10 ML VIAL SQ PRN (01:15)
[2017-10-06] MEDS ORDERED: CHLORHEXIDINE GLUCONATE 2 % 1 PACK (2 CLOTHS) TOPICAL PRN (01:15)
[2017-10-06 03:44] VITALS: BP 96/66; PULSE 84; RESP 18; TEMP 98.3; O2SAT 94
[2017-10-06 07:09] LABS: ANION GAP 7 MEQ/L (5-15); AST (GOT) 12 U/L (15-37); BICARBONATE 26.6 MEQ/L (21.0-32.0); BLOOD UREA NITROGEN 11 MG/DL (7-18); CHLORIDE 105 MEQ/L (98-107); GLOMERULAR FILTRATION RATE 81 ML/MIN (>89); POTASSIUM 3.5 MEQ/L (3.5-5.1); SODIUM (NA) 139 MEQ/L (136-145)
[2017-10-06 07:13] LABS: ALKALINE PHOSPHATASE 65 U/L (45-117); ALT (GPT) 17 U/L (10-53); HDL CHOLESTEROL 70.6 MG/DL (40.0-60.0); LDL CHOLESTEROL 142 MG/DL (0-99); TOTAL BILIRUBIN ADULT 0.8 MG/DL (0.2-1.0)
[2017-10-06 07:45] VITALS: PULSE 66
[2017-10-06] MEDS: INSULIN ASPART SUPPLEMENTAL SCALE SQ SCH ×2 (08:00→12:46)
[2017-10-06 08:07] VITALS: BP 144/72; PULSE 63; RESP 16; TEMP 98; O2SAT 100
[2017-10-06] MEDS: SODIUM CHLORIDE 0.9% FLUSH 10 ML FLUSH IV FLUSH SCH (08:30)
[2017-10-06] MEDS ORDERED: PANTOPRAZOLE SOD 40 MG DELAYED RELEASE TAB PO SCH (09:00)
--- NOTE | 2017-10-06 09:52 | GIPROC ---
[facility] [address] [facility]. [facility], [address] EGD PROCEDURE REPORT EXAM DATE: 10/06/2017 PATIENT NAME: Adelaide Mix MR #: [id number] BIRTHDATE: 1970 ATTENDING: Tameka Aguilar MD ORDER #: [id number] INVENTORY PLANNER: Noel Fischer and Aanyeli Escudero STATUS: inpatient INDICATIONS: The patient is a 47 yr old female here for an EGD due to epigastric abdominal pain PROCEDURE PERFORMED: EGD w/ biopsy MEDICATIONS: None and Per Anesthesia. TOPICAL ANESTHETIC: CONSENT: The patient understands the risks and benefits of the procedure and understands that these risks include, but are not limited to: sedation, allergic reaction, infection, perforation and/or bleeding. Alternative means of evaluation and treatment include, among others: physical exam, x-rays, and/or surgical intervention. The patient elects to proceed with this endoscopic procedure. medical equipment was checked for proper function. Hand hygiene and appropriate measures for infection prevention was taken. After the risks, benefits and alternatives of the procedure were thoroughly explained, Informed consent was verified, confirmed and timeout was successfully executed by the treatment team. The patient was anesthetized with topical anesthesia and the EC-[id number] (Pedi C) endoscope was introduced through the mouth and advanced to the second portion of the duodenum. Retroflexed views revealed no abnormalities The gastroscope was then slowly withdrawn and removed. ESOPHAGUS: There was LA Class A esophagitis noted. A biopsy was performed using cold forceps. Sample sent for histology. A biopsy was performed using cold forceps. Sample sent for histology. STOMACH: There was erythematous moderate gastritis in the gastric antrum. A biopsy was performed using cold forceps. Sample sent for histology. DUODENUM: Moderate duodenal inflammation was found in the duodenal bulb. ADVERSE EVENTS: There were no complications. IMPRESSIONS: 1. There was LA Class A esophagitis noted; biopsy was performed 2. There was erythematous gastritis in the gastric antrum; biopsy was performed 3. Duodenal inflammation was found in the duodenal bulb 4. Retroflexed views revealed no abnormalities RECOMMENDATIONS: 1. Await biopsy results. Biopsy results will not be ready for 7-10 days. If you don't hear from us in two weeks, call our office for biopsy results. 2. Anti-reflux regimen 3. Continue PPI 4. Avoid NSAIDS PATIENT CONDITION: stable DISPOSITION: Inpatient REPEAT EXAM: Return 1 year EGD pending biopsy results Tameka Aguilar MD eSigned: Tameka Aguilar MD 10/06/2017 9:51 AM cc: PATIENT NAME: Dominguez Adelaide L MR#: [id number]
--- NOTE | 2017-10-06 09:55 | GIPROC ---
[facility] [address] [facility]. [facility], [address] COLONOSCOPY PROCEDURE REPORT EXAM DATE: 10/06/2017 PATIENT NAME: Adelaide Mix MR #: [id number] BIRTHDATE: 1970 ENDOSCOPIST: Tameka Aguilar MD ORDER #: [id number] PLATE SHOP HELPER: Noel Fischer and Anayeli Escudero STATUS: inpatient INDICATIONS: The patient is a 47 yr old female here for a colonoscopy due to abdominal pain and chronic diarrhea PROCEDURE PERFORMED: Colonoscopy with polypectomy MEDICATIONS: None and Per Anesthesia. PREP QUALITY: The [place] Bowel Prep Score was Right colon 1, Mid colon 2, and Left colon 2. Total = 5. PREP TYPE:GoLytely ESTIMATED BLOOD LOSS: None CONSENT: The patient understands the risks and benefits of the procedure and understands that these risks include, but are not limited to: sedation, allergic reaction, infection, perforation and/or bleeding. Alternative means of evaluation and treatment include, among others: physical exam, x-rays, and/or surgical intervention. The patient elects to proceed with this endoscopic procedure. medical equipment was checked for proper function. Hand hygiene and appropriate measures for infection prevention was taken. After the risks, benefits and alternatives of the procedure were thoroughly explained, Informed consent was verified, confirmed and timeout was successfully executed by the treatment team. A digital exam revealed external hemorrhoids The Pentax [id number] endoscope was introduced through the anus and advanced to the cecum, which was identified by both the appendix and ileocecal valve. The instrument was then slowly withdrawn as the colon was fully examined. COLON FINDINGS: A polypoid shaped pedunculated polyp ranging between 5-9mm in size was found in the sigmoid colon. A polypectomy was performed using snare cautery. The resection was complete and the polyp tissue was completely retrieved. Moderate diverticulosis was noted in the sigmoid colon. No bleeding was noted from the diverticulosis. Retroflexed views revealed internal hemorrhoids and Retroflexed views revealed medium internal hemorrhoids The scope was then completely withdrawn from the patient and the procedure terminated. PROCEDURE WITHDRAWAL TIME:9minutes ADVERSE EVENTS: There were no complications. IMPRESSIONS: 1. A pedunculated polyp ranging between 5-9mm in size was found in the sigmoid colon; polypectomy was performed using snare cautery 2. Moderate diverticulosis was noted in the sigmoid colon 3. Retroflexed views revealed internal hemorrhoids 4. Retroflexed views revealed medium internal hemorrhoids 5. Revealed external hemorrhoids RECOMMENDATIONS: 1. Await biopsy results. Biopsy results will not be ready for 7-10 days. If you don't hear from us in two weeks, call our office for results. 2. Benefiber 2 tsp daily 3. Continue surveillance 4. Yearly hemoccult 5. No seeds, nuts and popcorn in diet RECALL: Return 1 year Colonoscopy, pending biopsy results Tameka Aguilar MD eSigned: Tameka Aguilar MD 10/06/2017 9:54 AM cc: PATIENT NAME: Adelaide Mix MR#: [id number]
[2017-10-06] MEDS: FLUoxetine HCL 10 MG CAP PO SCH (10:37)
[2017-10-06] MEDS: ASPIRIN EC 325 MG TABEC PO SCH (10:38)
[2017-10-06 12:00] VITALS: BP 119/67; PULSE 69; RESP 18; TEMP 98.1; O2SAT 100
[2017-10-06] MEDS ORDERED: ATOR40TA16 PO (14:42)
[2017-10-06] MEDS ORDERED: PANT40TA3 PO (14:42)
--- NOTE | 2017-10-06 14:43 | HHI.DCPOC ---
Discharge Care Plan Diagnosis: (1) Diarrhea (2) Abdominal pain (3) Anxiety disorder, unspecified (4) Atypical chest pain Goals to Promote Your Health * To prevent worsening of your condition and complications * To maintain your health at the optimal level Directions to Meet Your Goals Take your medications as prescribed Follow your dietary instruction Follow activity as directed Keep your appointments as scheduled Take your immunizations and boosters as scheduled If your symptoms worsen call your PCP, if no PCP go to Urgent Care Center or Emergency Room Smoking is Dangerous to Your Health. Avoid second hand smoke Call the 24-hour hour crisis hotline for domestic abuse at Silvio Chua DO Oct 06, 2017 14:43
--- NOTE | 2017-10-06 15:01 | HHI.DS ---
Discharge Summary Admission Date Oct 04, 2017 at 12:33 Discharge Date: Oct 06, 2017 Admitting Diagnosis chest pain (1) Abdominal pain ICD Code: R10.9 - Unspecified abdominal pain Diagnosis: Principal (2) Diarrhea ICD Code: R19.7 - Diarrhea, unspecified Diagnosis: Principal (3) Anxiety disorder, unspecified ICD Code: F41.9 - Anxiety disorder, unspecified Diagnosis: Principal (4) Atypical chest pain ICD Code: R07.89 - Other chest pain Diagnosis: Principal Status: Acute Procedures EGD/ colonoscopy Brief History - From Admission Patient is a 47 years old female who states that she woke up well this morning then later started experiencing chest pains associated with nausea. Denies any palpitations or shortness of breath. Persistence prompted consult to ER on initial evaluation showed an EKG that is normal. First set of troponin was negative. Also the patient complained of transient left upper extremity numbness and numbness. Patient admitted for further evaluation. Patient's appears very anxious. She said states that she takes Xanax. She has history of alcohol use and actually quit drinking for 9 years. However patient last night admits to drinking 2 shots of rum/coke and used marijuana because she can' t sleep and she didn't feel good. Other than this patient denies any fever or denies any headaches. Patient states she also had some upset stomach and had a history of laparoscopic surgery in 2016 where s "scar tissues" was removed. She states usual bowel movement is diarrhea every morning. No melena or hematochezia. Patient states she takes Prozac once daily schedule and Xanax every 8 when necessary for anxiety. On further discussion, losing weight, diarrhea constantly right after eating chronic abdominal pain, generalized aches States she uses marijuanana to increase her appetitite and for her chronic pain Patient admitted for evaluation of chest pain and possible TIA. CBC/BMP: 10/05/17 1245 10/06/17 0518 Significant Findings Laboratory Tests Test 10/04/17 10:02 10/04/17 16:30 10/04/17 16:55 10/05/17 01:30 White Blood Count 14.3 TH/MM3 (4.0-11.0) Neutrophils (%) (Auto) 82.7 % (16.0-70.0) Neutrophils # (Auto) 11.8 TH/MM3 (1.8-7.7) Estimat Glomerular Filtration Rate 82 ML/MIN (>89) Troponin I LESS THAN 0.02 NG/ML LESS THAN 0.02 NG/ML LESS THAN 0.02 NG/ML Urine Turbidity HAZY (CLEAR) Urine Ketones TRACE mg/dL (NEG) Urine Benzodiazepines Screen POS (NEG) Urine Cannabinoids Screen POS (NEG) Test 10/05/17 12:45 10/05/17 17:01 10/06/17 05:18 Neutrophils (%) (Auto) 72.2 % (16.0-70.0) Aspartate Amino Transf (AST/SGOT) 12 U/L (15-37) Estimat Glomerular Filtration Rate 81 ML/MIN (>89) Cholesterol Level 228 MG/DL (120-200) LDL Cholesterol 142 MG/DL (0-99) HDL Cholesterol 70.6 MG/DL (40.0-60.0) Imaging Last Impressions Myocardial Perfusion Scan Nuc Med 10/05/17 0000 Signed Impressions: Service Date/Time: Thursday, October 05, 2017 09:58 - CONCLUSION: Normal myocardial perfusion scan. No evidence of stress-induced or fixed perfusion abnormalities. RISK CATEGORY: Low (<1%% Annual Mortality Rate) Vikas Whitfield MD Head Magnetic Resonance Angiography 10/05/17 0000 Signed Impressions: Service Date/Time: Thursday, October 05, 2017 11:32 - CONCLUSION: 1. Unremarkable MR angiography of the brain. Kal Agee MD Brain MRI 10/05/17 0000 Signed Impressions: Service Date/Time: Thursday, October 05, 2017 11:32 - CONCLUSION: 1. No evidence of acute intracranial pathology. No masses are identified. Kal Agee MD Chest X-Ray 10/04/17 0954 Signed Impressions: Service Date/Time: Wednesday, October 04, 2017 10:02 - CONCLUSION: No acute disease. Vikas Whitfield MD Head CT 10/04/17 0000 Signed Impressions: Service Date/Time: Wednesday, October 04, 2017 11:13 - CONCLUSION: Negative for an acute process. Dipak Marcial MD FACR Carotid Artery Ultrasound 10/04/17 0000 Signed Impressions: Service Date/Time: Wednesday, October 04, 2017 15:58 - CONCLUSION: 1. No evidence of hemodynamically significant lesion. Kal Agee MD Abdomen/Pelvis CT 10/04/17 0000 Signed Impressions: Service Date/Time: Thursday, October 05, 2017 02:59 - CONCLUSION: 1. The urinary bladder is at the upper limits of normal in size. 2. The study is otherwise unremarkable. Silvio Dumont MD PE at Discharge GENERAL: In no apparent distress. SKIN: No rashes, ecchymoses or lesions. Cool and dry. HEAD: Atraumatic. Normocephalic. No temporal or scalp tenderness. EYES: Pupils equal round and reactive. Extraocular motions intact. No scleral icterus. No injection or drainage. ENT: Nose without bleeding, purulent drainage or septal hematoma. Throat without erythema, tonsillar hypertrophy or exudate. Uvula midline. Airway patent. NECK: Trachea midline. No JVD or lymphadenopathy. Supple, nontender, no meningeal signs. CARDIOVASCULAR: Regular rate and rhythm without murmurs, gallops or rubs. RESPIRATORY: Clear to auscultation. Breath sounds equal bilaterally. No wheezes , rales, or rhonchi. GASTROINTESTINAL: Tenderness to palpation left of the umbilicus. MUSCULOSKELETAL: Extremities without clubbing, cyanosis, or edema. No joint tenderness, effusion, or edema noted. NEUROLOGICAL: Awake and alert. Cranial nerves II through XII intact. Motor and sensory grossly within normal limits. Five out of 5 muscle strength in all muscle groups. Normal speech. PSYCH: Mood and affect appropriate. Pt update on day of discharge The patient was hoping to go home today. She wanted to know what was causing her abdominal pain. Her family was at the bedside and their questions were answered. Hospital Course Palpitations Likely secondary to anxiety. Trops negative x 3. EKG with normal sinus rhythm. Symptoms have resolved. Stress test normal. She was monitored on telemetry. She will continue with anxiety control. Anxiety disorder/ Panic attacks Psychiatry was consulted. She will continue on Xanax when necessary and she will continue Prozac. Would possibly benefit from starting Elavil as an outpt. We will refer to psychiatry as an outpt. Transient left-sided tingling/ numbness Neurology was consulted. Head CT and brain MRI negative. LDL elevated. Will d/c aspirin. She will need to follow the echo results as an outpt. Will start statin for elevated LDL. Chronic diarrhea/ Weight loss/ Abdominal pain Ongoing for past year. CT scan unremarkable. GI was consulted. EGD with gastritis. Colonoscopy with a polyp and diverticulosis. She will follow up with GI as an outpt for biopsy results. She will continue a PPI. A transvaginal US was ordered prior to discharge which was normal. She will follow up with OBGYN as an outpt. Pt Condition on Discharge: Stable Discharge Disposition: Discharge Home Discharge Time: > 30 minutes Discharge Instructions DIET: Follow Instructions for: Diverticulitis Diet, Low Residue Diet Activities you can perform: Regular-No Restrictions Follow up Referrals: Gastroenterology - 2 Weeks with Tameka Aguilar MD [facility] - 1 Week with Maryellen Valencia MD PCP Follow-up - 1 Week Psychiatry Adult - 2 Weeks New Medications: Atorvastatin (Atorvastatin) 40 Mg Tab 40 MG PO HS for Cholesterol Management, #30 TAB 0 Refills Pantoprazole (Pantoprazole) 40 Mg Tab 40 MG PO DAILY for Stomach pain, #30 TAB Continued Medications: Alprazolam (Alprazolam) 1 Mg Tab 1 MG PO TID PRN for ANXIETY, TAB 0 Refills Fluoxetine (Prozac) 10 Mg Cap 10 MG PO DAILY, #30 CAP 0 Refills Silvio Chua DO Oct 06, 2017 15:01
[2017-10-06 15:40] VITALS: BP 145/74; PULSE 64; RESP 16; TEMP 98.3; O2SAT 99
--- NOTE | 2017-10-06 16:17 | RADRPT ---
EXAM DATE/TIME: 10/06/2017 14:50 [facility] COMPARISON: CT ABDOMEN & PELVIS W CONTRAST, October 05, 2017, 2:59. INDICATIONS : Pelvic pain. MEDICAL HISTORY : Hypercholesterolemia. Nausea. SURGICAL HISTORY : section. Partial hysterectomy. ENCOUNTER: Initial ACUITY: > 1 year PAIN SCORE: 4/10 LOCATION: Bilateral pelvis MEASUREMENTS: UTERUS: Surgically absent RIGHT OVARY: 2.8 x 1.9 x 1.3 cm LEFT OVARY: Non visualized FINDINGS: UTERUS: Surgically absent. No pelvic mass is seen. Vaginal cuff demonstrates a normal thickness. RIGHT OVARY: Ovary contains no mass or significant cystic lesion. LEFT OVARY: Not definitively seen. MISCELLANEOUS: No free fluid. CONCLUSION: No abnormality is identified within the pelvis in this patient post hysterectomy. Kyle Mcmahon MD on October 06, 2017 at 16:14 Board Certified Radiologist. This report was verified electronically.
--- NOTE | 2017-10-06 17:58 | ECHRPT ---
Indication: CVA/TIA CONCLUSIONS The left ventricular systolic function is normal with an estimated ejection fraction in the range of 60-65%. Wall thickness is normal. Normal left ventricular size. There is trace tricuspid valve regurgitation. The estimated pulmonary arterial pressure is 24.3 mmHg. BP: 119 / 59 HR: 59 Rhythm: Sinus MEASUREMENTS (Male / Female) Normal Values Technical Quality:Good 2D ECHO LV Diastolic Diameter PLAX 3.8 cm 4.2 - 5.9 / 3.9 - 5.3 cm LV Systolic Diameter PLAX 2.7 cm IVS Diastolic Thickness 0.8 cm 0.6 - 1.0 / 0.6 - 0.9 cm LVPW Diastolic Thickness 0.8 cm 0.6 - 1.0 / 0.6 - 0.9 cm LV Relative Wall Thickness 0.4 LVOT Diameter 2.0 cm M-MODE Aortic Root Diameter MM 2.2 cm LA Systolic Diameter MM 2.8 cm LA Ao Ratio MM 1.3 AV Cusp Separation MM 1.9 cm DOPPLER AV Peak Velocity 134.0 cm/s AV Peak Gradient 7.2 mmHg LVOT Peak Velocity 111.0 cm/s LVOT Peak Gradient 4.9 mmHg AV Area Cont Eq pk 2.6 cm Mitral E Point Velocity 75.5 cm/s Mitral A Point Velocity 37.0 cm/s Mitral E to A Ratio 2.0 LV E' Lateral Velocity 13.3 cm/s Mitral E to LV E' Lateral Ratio 5.7 LV E' Septal Velocity 9.7 cm/s Mitral E to LV E' Septal Ratio 7.8 TR Peak Velocity 189.0 cm/s TR Peak Gradient 14.3 mmHg Right Atrial Pressure 10.0 mmHg Pulmonary Artery Systolic Pressu 24.3 mmHg Right Ventricular Systolic Press 24.3 mmHg PV Peak Velocity 113.0 cm/s PV Peak Gradient 5.1 mmHg FINDINGS LEFT VENTRICLE The left ventricular systolic function is normal with an estimated ejection fraction in the range of 60-65%. Wall thickness is normal. Normal left ventricular size. RIGHT VENTRICLE Normal right ventricular size and systolic function. LEFT ATRIUM The left atrial size is normal. RIGHT ATRIUM The right atrial size is normal. ATRIAL SEPTUM Normal atrial septal thickness without atrial level shunting by limited color doppler interrogation. AORTA The aortic root and proximal ascending aorta are normal in size on limited imaging. MITRAL VALVE Structurally normal mitral valve. No mitral valve stenosis or regurgitation. AORTIC VALVE Trileaflet aortic valve. No aortic valve stenosis or regurgitation. TRICUSPID VALVE There is trace tricuspid valve regurgitation. The estimated pulmonary arterial pressure is 24.3 mmHg. PULMONARY VALVE No pulmonary valve regurgitation or stenosis. VESSELS The inferior vena cava is normal in size. PERICARDIUM No pericardial effusion. Prashant Crockett MD (Electronically Signed) Final Date:06 October 2017 17:56
== END 2017-10-06 18:55 | disposition home or self-care (01) ==
LOC: NEPE 09:08 → NEDA 12:33 → NEPFCDU 14:09
PROVIDERS: ADMIT Hospitalist; ATTEND Hospitalist
DX: K20.9 Esophagitis, unspecified (principal); K29.80 Duodenitis without bleeding; K29.70 Gastritis, unspecified, without bleeding; K64.8 Other hemorrhoids; K57.30 Diverticulosis of large intestine without perforation or abscess without bleeding; D12.5 Benign neoplasm of sigmoid colon; K64.4 Residual hemorrhoidal skin tags; R07.89 Other chest pain; R11.2 Nausea with vomiting, unspecified; R06.02 Shortness of breath; R63.4 Abnormal weight loss; F41.0 Panic disorder [episodic paroxysmal anxiety]; R09.89 Other specified symptoms and signs involving the circulatory and respiratory systems; F12.90 Cannabis use, unspecified, uncomplicated; Z87.891 Personal history of nicotine dependence; Z79.899 Other long term (current) drug therapy
CPT/HCPCS: 00740; 43239; 45380; 70450; 70544; 70551; 71010; 74177; 76830; 76856; 78452; 80048; 80053; 80061; 80307; 81001; 82550; 82552; 82948; 83036; 84484; 84703; 85025; 87328; 87329; 87493; 87506; 88305; 88312; 93005; 93017; 93306; 93880; 99285; A9502; G0378; J2785; Q9963; Q9967

== ENCOUNTER 2018-01-10 08:23 | Emergency (ER) | payer SELFPAY ==
[~2018-01-10] VITALS: Ht 160 cm; Wt 45.0 kg
[~2018-01-10 08:23] MED LIST changes: -ALPR1CON PO; +ALPR1TAB3 PO; +ATOR40TA16 PO; +FLUO-1 PO; +PANT40TA3 PO; -PROM25SU8 PO; -PROT40TA PO
[2018-01-10 08:29] VITALS: BP 134/83; PULSE 94; RESP 16; TEMP 98.4; O2SAT 99
[2018-01-10 08:48] VITALS: O2SAT 96
[2018-01-10] MEDS ORDERED: SODIUM CHLOR 0.9% 1000 ML INJ 1,000 ML IV SCH (09:02)
[2018-01-10 09:10] LABS: AUTOMATED NEUTROPHIL # 9.5 TH/MM3 (1.8-7.7); BASOPHIL # 0.1 TH/MM3 (0-0.2); BASOPHIL % 0.7 % (0.0-2.0); EOSINOPHIL % 0.3 % (0.0-4.0); HEMATOCRIT 43.6 % (35.0-46.0); LYMPH % 15.2 % (9.0-44.0); LYMPHOCYTE # 1.8 TH/MM3 (1.0-4.8); MEAN CORPUSCULAR HEMOGLOBIN 33.1 PG (27.0-34.0); MEAN CORPUSCULAR HGB CONC 34.5 % (32.0-36.0); MONO % 5.7 % (0.0-8.0); MONOCYTE # 0.7 TH/MM3 (0-0.9); NEUT % 78.1 % (16.0-70.0); PLATELET COUNT 325 TH/MM3 (150-450); RED BLOOD COUNT 4.55 MIL/MM3 (4.00-5.30); RED CELL DISTRIBUTION WIDTH 12.8 % (11.6-17.2); WHITE BLOOD COUNT 12.1 TH/MM3 (4.0-11.0)
[2018-01-10] MEDS ORDERED: SODIUM CHLORIDE 0.9% FLUSH 10 ML FLUSH IV FLUSH PRN (09:15)
[2018-01-10] MEDS ORDERED: ONDANSETRON HCL 4 MG/2 ML VIAL IVP ONE (09:15)
[2018-01-10 09:36] LABS: ALBUMIN 4.4 GM/DL (3.4-5.0); ALT (GPT) 20 U/L (10-53); AST (GOT) 12 U/L (15-37); BICARBONATE 24.7 MEQ/L (21.0-32.0); BLOOD UREA NITROGEN 15 MG/DL (7-18); CALCIUM 9.7 MG/DL (8.5-10.1); CHLORIDE 102 MEQ/L (98-107); CREATININE 0.99 MG/DL (0.50-1.00); GLOMERULAR FILTRATION RATE 60 ML/MIN (>89); GLUCOSE,RANDOM 117 MG/DL (74-106); SODIUM (NA) 138 MEQ/L (136-145)
[2018-01-10 09:39] LABS: ALKALINE PHOSPHATASE 63 U/L (45-117); TOTAL BILIRUBIN ADULT 0.6 MG/DL (0.2-1.0); TOTAL PROTEIN 7.8 GM/DL (6.4-8.2)
[2018-01-10 09:50] LABS: BACTERIA, URINE OCC /hpf; BLOOD, URINE MOD (NEG); CALCIUM OXALATE CRYSTALS,URINE OCC /hpf; GLUCOSE,URINE TRACE mg/dL (NEG); HYALINE CAST, URINE 58 /lpf (RARE); KETONE, URINE 10 mg/dL (NEG); MUCUS URINE MANY /lpf (OCC); NITRITE,URINE NEG (NEG); SQUAMOUS EPITHELIAL CELL URINE 4 /hpf (0-5); URINE LEUKOCYTE ESTERASE NEG (NEG)
[2018-01-10 09:55] LABS: BILIRUBIN, URINE NEG (NEG); URINE COLOR AMBER (YELLW/STRAW)
[2018-01-10] MEDS ORDERED: IOHEXOL 350 MG/ML 10 ML VIAL (for RAD DIAG) IVCONTRAST ONE (10:05)
--- NOTE | 2018-01-10 10:15 | RADRPT ---
EXAM DATE/TIME: 01/10/2018 10:00 [facility] COMPARISON: No previous studies available for comparison. INDICATIONS : <<Mid abdominal pain with diarrhea. >> IV CONTRAST: <<93>> cc Omnipaque 350 (iohexol) IV ORAL CONTRAST: No oral contrast ingested. RADIATION DOSE: <<6.64>> CTDIvol (mGy) MEDICAL HISTORY : None SURGICAL HISTORY : Hysterectomy. ENCOUNTER: Initial ACUITY: 4 - 6 months PAIN SCALE: 5/10 LOCATION: Bilateral anterior TECHNIQUE: Volumetric scanning of the abdomen and pelvis was performed. Using automated exposure control and ad justment of the mA and/or kV according to patient size, radiation dose was kept as low as reasonably achievable to obtain optimal diagnostic quality images. DICOM format image data is available electro nically for review and comparison. FINDINGS: Lung bases are clear. No acute findings in the liver, spleen, adrenals, kidneys or pancreas. No calci fied gallstones. No free fluid or free air. No bowel obstruction. No adenopathy. No acute bony abnormalities. CONCLUSION: 1. No acute finding abdomen and pelvic CT. No significant change since September 2017. Rk Preciado MD on January 10, 2018 at 10:09 Board Certified Radiologist. This report was verified electronically.
[2018-01-10 10:27] LABS: INTERNATIONAL NORMALIZED RATIO 1.1 RATIO; PROTHROMBIN TIME - PATIENT 10.7 SEC (9.8-11.6)
[2018-01-10] MEDS ORDERED: AZITHROMYCIN PWD FOR SUSP 1 GM PACKET PO ONE (13:00)
[2018-01-10] MEDS ORDERED: METR-1 PO (13:28)
--- NOTE | 2018-01-10 13:29 | PD ---
HPI Chief Complaint: GI Complaint Time Seen by Provider: 08:45 Travel History International Travel<30 days: No Contact w/Intl Traveler<30days: No Traveled to known affect area: No History of Present Illness HPI Patient is a 47-year-old female who comes in complaining of lower abdominal pain. She says she has had the pain for at least a year. She says it started after she had a surgery about a year ago to release some of the scar tissue in her abdomen. She says the pain is gotten worse in the past 2 weeks and she has burning in her vaginal area. She says she is concerned that her may have given her an STD. She does report a large amount of discharge. She also reports having diarrhea and large amount of weight loss. She says she is unable to eat because she is not hungry. She was here in September and had an extensive workup. She does have an appointment with gastroenterology for follow -up. She has not had any nausea or vomiting. She denies fever chills. Severity is mild to moderate. PFSH Past Medical History Anxiety: Yes Depression: Yes High Cholesterol: Yes Diminished Hearing: No Gastrointestinal Disorders: Yes (loose stool) Psychiatric: Yes ?: Unknown Past Surgical History Section: Yes Hysterectomy: Yes Other Surgery: Yes (LAPAROSCOPY) Social History Alcohol Use: Yes (OCCASSIONALLY) Tobacco Use: No (QUIT 3 YEARS AGO) Substance Use: Yes (MARIJUANA DAILY) Allergies-Medications (Allergen,Severity, Reaction): Coded Allergies: acetaminophen (Unverified Allergy, Severe, Nausea/Vomiting, 06/14/17) oxycodone (Unverified Allergy, Severe, Nausea/Vomiting, 06/14/17) penicillin G (Unverified Allergy, Severe, 06/14/17) propoxyphene (Unverified Allergy, Severe, Nausea/Vomiting, 06/14/17) Reported Meds & Prescriptions Reported Meds & Active Scripts Active Flagyl (Metronidazole) 500 Mg Tab 500 Mg PO TID 7 Days Atorvastatin (Atorvastatin Calcium) 40 Mg Tab 40 Mg PO HS Pantoprazole (Pantoprazole Sodium) 40 Mg Tab 40 Mg PO DAILY Reported Prozac (Fluoxetine HCl) 10 Mg Cap 10 Mg PO DAILY Alprazolam 1 Mg Tab 1 Mg PO TID PRN Review of Systems Except as stated in HPI: all other systems reviewed are Neg General / Constitutional: No: Fever, Chills HENT: No: Headaches, Lightheadedness Cardiovascular: No: Chest Pain or Discomfort Respiratory: No: Shortness of Breath Gastrointestinal: Positive: Diarrhea, Abdominal Pain Genitourinary: Positive: Dysuria, Discharge Skin: No Rash, No Change in Pigmentation Neurologic: No: Weakness, Change in Mentation Physical Exam Narrative GENERAL: Awake and alert, no acute distress. SKIN: Focused skin assessment warm/dry. No wounds or signs of infection. HEAD: Atraumatic. Normocephalic. EYES: Pupils equal and round. No scleral icterus. ENT: Mucous membranes pink and moist. NECK: Trachea midline. No JVD. CARDIOVASCULAR: Regular rate and rhythm. No murmur appreciated. RESPIRATORY: No accessory muscle use. Clear to auscultation. Breath sounds equal bilaterally. GASTROINTESTINAL: Abdomen soft, nondistended. Tender to palpation of the lower abdomen. No rebound or guarding. : Exam performed in the presence of a nurse. Copious amounts of thick white discharge. No lesions seen. MUSCULOSKELETAL: No obvious deformities. No clubbing. No cyanosis. No edema. NEUROLOGICAL: Awake and alert. No obvious cranial nerve deficits. Motor grossly within normal limits. Normal speech. PSYCHIATRIC: Appropriate mood and affect; insight and judgment normal. Data Data Last Documented VS Vital Signs Date Time Temp Pulse Resp B/P (MAP) Pulse Ox O2 Delivery O2 Flow Rate FiO2 01/10/18 13:38 01/10/18 13:37 75 17 100 Room Air 01/10/18 08:29 98.4 Orders Orders Complete Blood Count With Diff (01/10/18 08:32) Comprehensive Metabolic Panel (01/10/18 08:32) Urinalysis - C+S If Indicated (01/10/18 08:32) Iv Access Insert/Monitor (01/10/18 08:32) Oxygen Administration (01/10/18 08:32) Oximetry (01/10/18 08:32) Lipase (01/10/18 08:32) Prothrombin Time / Inr (Pt) (01/10/18 09:02) Act Partial Throm Time (Ptt) (01/10/18 09:02) Ct Abd/Pel W Iv Contrast(Rout) (01/10/18 09:02) Ecg Monitoring (01/10/18 09:02) Ondansetron Inj (Zofran Inj) (01/10/18 09:15) Sodium Chlor 0.9% 1000 Ml Inj (Ns 1000 M (01/10/18 09:02) Sodium Chloride 0.9% Flush (Ns Flush) (01/10/18 09:15) Iohexol 350 Inj (Omnipaque 350 Inj) (01/10/18 10:05) Wet Prep Profile (01/10/18 11:24) Gc And Chlamydia Pcr (01/10/18 11:24) Azithromycin Powd Pack (Zithromax Powd P (01/10/18 13:00) Ed Discharge Order (01/10/18 13:29) Labs Laboratory Tests Test 01/10/18 08:40 01/10/18 09:10 01/10/18 09:45 01/10/18 11:35 White Blood Count 12.1 TH/MM3 Red Blood Count 4.55 MIL/MM3 Hemoglobin 15.0 GM/DL Hematocrit 43.6 % Mean Corpuscular Volume 96.0 FL Mean Corpuscular Hemoglobin 33.1 PG Mean Corpuscular Hemoglobin Concent 34.5 % Red Cell Distribution Width 12.8 % Platelet Count 325 TH/MM3 Mean Platelet Volume 8.0 FL Neutrophils (%) (Auto) 78.1 % Lymphocytes (%) (Auto) 15.2 % Monocytes (%) (Auto) 5.7 % Eosinophils (%) (Auto) 0.3 % Basophils (%) (Auto) 0.7 % Neutrophils # (Auto) 9.5 TH/MM3 Lymphocytes # (Auto) 1.8 TH/MM3 Monocytes # (Auto) 0.7 TH/MM3 Eosinophils # (Auto) 0.0 TH/MM3 Basophils # (Auto) 0.1 TH/MM3 CBC Comment DIFF FINAL Differential Comment Blood Urea Nitrogen 15 MG/DL Creatinine 0.99 MG/DL Random Glucose 117 MG/DL Total Protein 7.8 GM/DL Albumin 4.4 GM/DL Calcium Level 9.7 MG/DL Alkaline Phosphatase 63 U/L Aspartate Amino Transf (AST/SGOT) 12 U/L Alanine Aminotransferase (ALT/SGPT) 20 U/L Total Bilirubin 0.6 MG/DL Sodium Level 138 MEQ/L Potassium Level 3.6 MEQ/L Chloride Level 102 MEQ/L Carbon Dioxide Level 24.7 MEQ/L Anion Gap 11 MEQ/L Estimat Glomerular Filtration Rate 60 ML/MIN Lipase 161 U/L Urine Color JENNYFER Urine Turbidity HAZY Urine pH 6.0 Urine Specific [place] 1.036 Urine Protein 300 mg/dL Urine Glucose (UA) TRACE mg/dL Urine Ketones 10 mg/dL Urine Occult Blood MOD Urine Nitrite NEG Urine Bilirubin NEG Urine Urobilinogen 2.0 MG/DL Urine Leukocyte Esterase NEG Urine RBC 6 /hpf Urine WBC 4 /hpf Urine Squamous Epithelial Cells 4 /hpf Urine Calcium Oxalate Crystals OCC /hpf Urine Bacteria OCC /hpf Urine Hyaline Casts 58 /lpf Urine Mucus MANY /lpf Microscopic Urinalysis Comment CULT NOT INDICATED Prothrombin Time 10.7 SEC Prothromb Time International Ratio 1.1 RATIO Activated Partial Thromboplast Time 24.7 SEC Clue Cells (Wet Prep) NONE SEEN Vaginal Trichomonas (Wet Prep) NONE SEEN Vaginal Yeast (Wet Prep) NONE SEEN Chlamydia trachomatis DNA (PCR) NOT DETECTED Neisseria gonorrhoeae DNA (PCR) NOT DETECTED MDM Medical Decision Making Medical Screen Exam Complete: Yes Emergency Medical Condition: Yes Medical Record Reviewed: Yes Differential Diagnosis Dehydration versus electrolyte abnormality versus BV versus GC/chlamydia Narrative Course Anoscopy as well as colonoscopy. She did have a polyp removed, endoscopy showed severe gastritis. Have established, labs sent. Labs show no acute abnormalities. Swab sent for GC and chlamydia as well as wet prep. Wet prep shows no acute abnormalities. Treated with azithromycin for possible GC or chlamydia, she is allergic to penicillin. CT abdomen and pelvis performed shows no acute abnormalities. Last 24 hours Impressions Abdomen/Pelvis CT 01/10/18 0902 Signed Impressions: Service Date/Time: Wednesday, January 10, 2018 10:00 - CONCLUSION: 1. No acute finding abdomen and pelvic CT. No significant change since September 2017. Rk Preciado MD Discharge with a prescription for Flagyl. Advised to avoid alcohol while taking this antibiotic. She has an appointment with GI on Tuesday, advised to keep this appointment. Advised follow-up with gynecology as well. Advised return anytime for any worsening symptoms. Diagnosis Primary Impression: Abdominal pain Qualified Codes: R10.30 - Lower abdominal pain, unspecified Additional Impression: Diarrhea Qualified Codes: R19.7 - Diarrhea, unspecified Patient Instructions: Abdominal Pain (ED), Acute Diarrhea (ED), General Instructions Additional Instructions: Follow up with GI and gynecology. Take all of the antibiotics and do not drink while taking them. Return to the ED as needed for any worsening symptoms. Scripts Metronidazole (Flagyl) 500 Mg Tab 500 MG PO TID for Infection for 7 Days, TAB 0 Refills Prov: Edel Davey MD 01/10/18 Disposition: 01 DISCHARGE HOME Condition: Stable Edel Davey MD Jan 10, 2018 13:29
[2018-01-10 13:37] VITALS: BP 163/70; PULSE 75; RESP 17; O2SAT 100
== END 2018-01-10 13:42 | disposition home or self-care (01) ==
LOC: NEPE 08:23
DX: R10.30 Lower abdominal pain, unspecified (principal); R19.7 Diarrhea, unspecified; F12.90 Cannabis use, unspecified, uncomplicated; E78.00 Pure hypercholesterolemia, unspecified
CPT/HCPCS: 74177; 80053; 81001; 83690; 85025; 85610; 85730; 87210; 87491; 87591; 96360; 96361; 99284; J7030; Q9967